=== PATIENT | female | born 1950 ===

== ENCOUNTER 2020-06-30 05:47 | Inpatient (IN) ==
[2020-06-24 11:28] LABS: Basophils % 0.6 % (0.0-0.8); Eosinophils # 0.1 10*3/uL (0.0-0.87); Eosinophils % 1.1 % (0.00-10.9); Hematocrit 35.7 VOL% (35.7-47.0); Hemoglobin 12.4 GM/DL (12.0-16.0); Immature Granulocytes % 0.2 %; Immature Granulocytes Absolute 0.01 #; Lymphocytes # 1.6 10*3/uL (1.4-4.0); Lymphocytes % 30.7 % (21.3-54.2); Mean Corpuscular HGB Conc 34.7 GM/DL (32-36); Mean Corpuscular Volume 91.1 FL (87-102); Mean Platelet Volume 10.1 FL (9.6-12.0); Monocytes % 8.9 % (1.7-12.7); Neutrophils % 58.5 % (38.7-73.9); Platelet Count 251 T/CUMM (130-400); Red Blood Count 3.92 MC/CUMM (3.8-5.5); Red Cell Distribution Width 11.8 % (9.3-17.3); White Blood Count 5.3 T/CUMM (4-12)
[2020-06-24 11:58] LABS: Osmolality,Calculated 263.5 MOS/KG (273-304)
[2020-06-24 12:24] LABS: Apearance,Urine CLEAR (Clear); Bacteria,Urine Occasional /HPF (Few); Bilirubin,Urine Negative (Negative); Blood, Urine Negative (Negative); Glucose,Urine (UA) Negative (Negative); Ketones,Urine Negative (Negative); Nitrite,Urine Negative (Negative); Protein,Urine Negative; RBC,Urine <1 /HPF (0-4); Squamous Epithelial Cell,Urine Occasional /HPF (0-10); Urine Color Straw (Yellow); Urine Specific Gravity 1.004 (1.001-1.035); Urine Urobilinogen < 2.0 EU/DL (0.2-1.0); WBC,Urine <1 /HPF (0-6)
[2020-06-30] MEDS ORDERED: cefTRIAXone 1,000 MG in SYRINGE 1 EACH IV ONE (06:00)
[2020-06-30] MEDS ORDERED: FAMOTIDINE 20 MG TABLET PO ONE (06:13)
[2020-06-30] MEDS ORDERED: DIAZEPAM 5 MG TABLET PO ONE (06:13)
[2020-06-30] MEDS ORDERED: SCOPOLAMINE 1.5 MG PATCH TRANSDERM ONE ×2 (06:18→06:23)
[2020-06-30] MEDS ORDERED: DIAZEPAM 5 MG TABLET ONE (06:22)
[2020-06-30] MEDS ORDERED: cefTRIAXone 1,000 MG VIAL ONE (06:22)
[2020-06-30] MEDS ORDERED: FAMOTIDINE 20 MG TABLET ONE (06:23)
[2020-06-30] MEDS ORDERED: LACTATED RINGERS 1,000 ML IV SCH (06:30)
[2020-06-30 06:44] LABS: Calcium 9.7 MG/DL (8.5-10.1); Osmolality,Calculated 271.8 MOS/KG (273-304)
[2020-06-30] MEDS ORDERED: ONDANSETRON 4 MG/2 ML VIAL IV PRN (09:36)
[2020-06-30 09:47] LABS: Apearance,Urine CLEAR (Clear); Bilirubin,Urine Negative (Negative); Blood, Urine Negative (Negative); Glucose,Urine (UA) Negative (Negative); Hyaline Casts,Urine 1 /LPF (0-3); Ketones,Urine Negative (Negative); Nitrite,Urine Negative (Negative); Protein,Urine Negative; RBC,Urine 1 /HPF (0-4); Urine Color Colorless (Yellow); Urine Specific Gravity 1.004 (1.001-1.035); Urine Urobilinogen < 2.0 EU/DL (0.2-1.0); WBC,Urine 1 /HPF (0-6)
[2020-06-30] MEDS ORDERED: HYDROmorphone PCA 30 MG/30 ML SYRINGE IV SCH (10:00)
[2020-06-30] MEDS ORDERED: propofoL 200 MG/20 ML VIAL IV ONE (10:08)
[2020-06-30] MEDS ORDERED: SEVOFLURANE 1 UNIT/15 MINUTE INH ONE (10:09)
[2020-06-30] MEDS ORDERED: LIDOCAINE 2% 5 ML VIAL ONE (10:09)
[2020-06-30] MEDS ORDERED: fentaNYL 250 MCG/5 ML VIAL ONE (10:09)
[2020-06-30] MEDS ORDERED: ROCURONIUM 100 MG/10 ML VIAL IV ONE (10:10)
[2020-06-30] MEDS ORDERED: NEOSTIGMINE 10 MG/10 ML VIAL ONE (10:10)
[2020-06-30] MEDS ORDERED: ACETAMINOPHEN 1,000 MG/100 ML VIAL IV ONE (10:10)
[2020-06-30] MEDS ORDERED: GLYCOPYRROLATE 0.4 MG/2 ML VIAL ONE (10:10)
[2020-06-30] MEDS ORDERED: LACTATED RINGERS 1,000 ML IV ONE (10:10)
[2020-06-30] MEDS ORDERED: ePHEDrine 50 MG/ML VIAL ONE (10:10)
[2020-06-30] MEDS ORDERED: HYDROmorphone 2 MG/1 ML VIAL ONE (10:13)
[2020-06-30] MEDS ORDERED: HYDROmorphone 2 MG/1 ML VIAL IV PRN (10:21)
[2020-06-30] MEDS ORDERED: HYDROmorphone PCA 30 MG/30 ML SYRINGE IV ONE (10:22)
[2020-06-30] MEDS: SODIUM CHLORIDE 0.9% 1,000 ML IV SCH (11:17)
[2020-06-30] MEDS: carvediloL 3.125 MG TABLET PO SCH (20:52)
[2020-07-01] MEDS: SODIUM CHLORIDE 0.9% 1,000 ML IV SCH (01:44)
[2020-07-01 06:07] LABS: Basophils % 0.2 % (0.0-0.8); Eosinophils % 0.1 % (0.00-10.9); Hematocrit 33.8 VOL% (35.7-47.0); Hemoglobin 11.6 GM/DL (12.0-16.0); Immature Granulocytes % 0.1 %; Immature Granulocytes Absolute 0.01 #; Lymphocytes # 1.4 10*3/uL (1.4-4.0); Lymphocytes % 17.7 % (21.3-54.2); Mean Corpuscular HGB Conc 34.3 GM/DL (32-36); Mean Corpuscular Volume 92.3 FL (87-102); Mean Platelet Volume 10.1 FL (9.6-12.0); Monocytes % 6.9 % (1.7-12.7); Platelet Count 199 T/CUMM (130-400); Red Blood Count 3.66 MC/CUMM (3.8-5.5); Red Cell Distribution Width 11.9 % (9.3-17.3); White Blood Count 8.1 T/CUMM (4-12)
[2020-07-01 06:28] LABS: Calcium 8.9 MG/DL (8.5-10.1)
[2020-07-01] MEDS ORDERED: oxyCODONE/ACETAMINOPHEN 5-325 MG TABLET PO PRN ×2 (07:03)
[2020-07-01] MEDS: carvediloL 3.125 MG TABLET PO SCH (08:00)
[2020-07-01] MEDS ORDERED: hydroCHLOROthiazide 25 MG TABLET PO SCH (09:00)
[2020-07-01] MEDS ORDERED: CETIRIZINE 10 MG TABLET PO SCH (09:00)
[2020-07-01 12:15] VITALS: BP 124/59
== END 2020-07-01 12:30 | disposition home or self-care (01) | DRG 983 ==
LOC: N.OR 05:47 → N.SDSINP 05:48 → N.4E 10:55
PROVIDERS: ADMIT Urology; ATTEND Urology